=== PATIENT | female | born 1995 | race Two or more races ===

== ENCOUNTER 2016-04-22 23:30 | Emergency (ER) | payer OTHER, MEDICAID ==
[2016-04-23 01:13] LABS: URINE BILIRUBIN NEGATIVE (NEGATIVE); URINE BLOOD 3+ (NEGATIVE); URINE GLUCOSE (UA) NEGATIVE (NEGATIVE); URINE LEUKOCYTE ESTERASE 2+ (NEGATIVE); URINE NITRITE POSITIVE (NEGATIVE); URINE PROTEIN 2+ (NEGATIVE); URINE UROBILINOGEN NORMAL (0-1 mg/dl)
[2016-04-23 01:14] LABS: HCG,QUALITATIVE URINE NEGATIVE; URINE APPEARANCE CLOUDY; URINE COLOR YELLOW
[2016-04-23 01:18] LABS: URINE BACTERIA 2+; URINE EPITHELIAL CELLS FEW /hpf; URINE RBC 30-40 /hpf
[2016-04-23 01:19] LABS: URINE WBC >100 /hpf
[2016-04-23] MEDS ORDERED: CIPROFLOXACIN 500 MG TABLET ONE (01:28)
== END 2016-04-23 01:36 | disposition home or self-care (01) ==
LOC: ED 23:30
DX: N39.0 Urinary tract infection, site not specified (principal)
CPT/HCPCS: 81025; 87086; 87186; 81001; 99283 ×2; A9270